=== PATIENT | female | born 1940 | race African-American/Black ===

== ENCOUNTER 2016-10-08 15:09 | Inpatient (IN) | payer MEDICARE ==
[2016-10-08] VITALS (8 sets, daily range): BP systolic 96–123; BP diastolic 53–64
[~2016-10-08] VITALS: Ht 157.5 cm; Wt 98.6 kg
[~2016-10-08 15:09] MED LIST: CIPROFLOXACN500 MG PO; DITROPAN XL5 MG PO; GLUCOVANCE PO; HYDROCHLORO25 MG/TAB PO; LOPRESSOR 550 MG/TAB PO; LOSARTAN POT50 MG PO; PRAVACHOL20 MG PO; PRILOSEC20 MG/CAP PO; TRAMADOL HCL50 MG PO; XALATAN0.005 % OU
--- NOTE | 2016-10-08 15:20 | NUR ---
PATIENT TO ROOM VIA WHEELCHAIR. PHYSICIAN NOTIFIED OF PATIENT STATUS
--- NOTE | 2016-10-08 15:41 | NUR ---
FAMILY AT BEDSIDE
[2016-10-08 15:51] LABS: HEMATOCRIT 35.3 % (37.0-47.0); HEMOGLOBIN 11.7 g/dl (12.0-16.0); IMMATURE GRANULOCYTES 0.2 % (0.0-1.0); MEAN CELL VOLUME 94.1 fL CALC (80.0-100.0); MEAN CORPUSCULAR HGB 31.2 pG CALC (26.0-32.0); MEAN CORPUSCULAR HGB CONC 33.1 g/L CALC (32.0-36.0); NEUT# 2.67 thou/uL (2.00-7.15); RED BLOOD COUNT 3.75 mill/uL (4.20-5.60); RED CELL DISTRI WIDTH 13.5 % (11.5-15.5)
--- NOTE | 2016-10-08 15:59 | NUR ---
CARDIZEM GTT INITIATED ORDERED, WILL MONITOR CLOSELY TELE CONTINUES READING AFIB RATE 108-140 BP CURRENLTY 144/69, FAMILY REMAINS AT BEDSIDE
[2016-10-08 16:12] LABS: ALBUMIN 4.1 g/dL (3.2-5.0); ALKALINE PHOSPHATASE 61 u/l (38-126); ANION GAP 17 (6-22 (CALC)); BILIRUBIN, TOTAL 0.5 mg/dL (0.0-1.4); BUN 16 mg/dL (8-23); BUN/CREATININE RATIO 15 (12-20 (CALC)); CARBON DIOXIDE 22 mmol/l (22-30); CHLORIDE 109 mmol/l (95-108); CREATININE 1.1 mg/dL (0.5-1.0); GFR 48 ML/MIN (>=60 (CALC)); GFR FOR AFR.AMER. 58 ML/MIN (>=60 (CALC)); GLUCOSE 188 mg/dL (82-115); POTASSIUM 4.3 mmol/l (3.5-5.1); SGOT/AST 34 u/l (9-36); SGPT/ALT 31 u/l (11-66); SODIUM 143 mmol/l (137-146); TOTAL PROTEIN 7.3 g/dL (6.3-8.2)
[2016-10-08 16:24] LABS: MYOGLOBIN 28 ng/mL (0 - 62)
--- NOTE | 2016-10-08 16:30 | NUR ---
PT RESTING FAMILY MEMBERS AT BEDSIDE TELE CONTINEUS READFING A FIB RATE MORE [id number] AT 90-100BP 120/58 CALL RAGLAND WITHIN REACH
--- NOTE | 2016-10-08 16:40 | NUR ---
SPOKE WITH PT & FAMILY REGARDING DIAGNOSIS, AND PLAN OF CARE INCLDUING CALLING (PTS ONLINE RETAILER) FOR POSSIBLE ADMISSION, ALL QUESTIONS ANSWERED, CALL [place] WITHIN REACH
--- NOTE | 2016-10-08 18:25 | NUR ---
Admission Note Report Given to: SBAR PRINTED TO FLOOR Transported by: Wheelchair X Stretcher Transported with: X Nurse Transporter X Patent IV O2 X Tailings Worker
--- NOTE | 2016-10-08 18:40 | NUR ---
pt admitted to ICU bed 1 via stretcher from ER, pt alert and oriented, stood off strectcher and trasnferred to standing scale with SBA, weight obtained and then onto BSC with same assist continent of 75 ml clear janet urine, provided own doc care then into bed with min assist, tele reading a fib, BP remains controlled, some exertional dyspnea noted, call hawkins within reach, all monitoring equipment explained prror to application, safety measures introduced, call hawkins within reach.
--- NOTE | 2016-10-08 19:20 | NUR ---
pt awake in bed; multiple family members present at bedside; no distress noted; assessment completed at this time; pt alert and oriented; denies pain; no n/v/diaphoresis noted; denies chest pain; resp even and unlabored; lungs clear/diminished; skin color wnl; ra; hr irreg; weak pedal pulses; 2+ edema noted to ble; afib on monitor; abd soft/distended with bs present; no bm noted per brief writer; admits to voiding without complication; no urine to inspect at this time; #20 in lac patent with ns infusing at 20cc/hr and cardizem gtt at 5mg/hr; no redness or edema noted at site; plan of care explained; daughter Olga requsting to stay with pt; fall precautions initiated; call light within reach; will continue to monitor
--- NOTE | 2016-10-08 19:58 | NUR ---
awake in bed; multiple visitors at bedside; offers no complaints; no distress noted; afib on monitor; iv patent; cardizem gtt cont at 5mg/hr; call light within reach; will continue to monitor
--- NOTE | 2016-10-08 20:45 | NUR ---
Dr Shay called this fiction and nonfiction writer prose; update given; informed bp 92/62 with cardizem gtt infusing at 5mg/hr; orders to be placed per MD
--- NOTE | 2016-10-08 21:59 | NUR ---
asleep; daughter at bedside; cardizem gtt cont at 5mg/hr; afib on monitor; call light within reach; will continue to monitor
[2016-10-09] VITALS (18 sets, daily range): BP systolic 104–169; BP diastolic 58–87
--- NOTE | 2016-10-09 00:03 | NUR ---
pt asleep; easily aroused; offers no complaints; denies pain; iv patent; no redness or edema noted at site; afib 70-80s on monitor; cardizem gtt cont per protocol; daughter Olga remains at bedside; denies need to urinate at this time; call light within reach; will continue to monitor
--- NOTE | 2016-10-09 00:31 | NUR ---
awake; assist to bsc; void small amount of clear dark yellow urine; pericare per self; will continue to monitor
--- NOTE | 2016-10-09 02:04 | NUR ---
resting with eyes closed; afib on monitor; no distress noted; daughter at bedside; call light within reach
--- NOTE | 2016-10-09 04:02 | NUR ---
asleep; no distress noted; resp even and unlabored; afib on monitor; will continue to monitor
--- NOTE | 2016-10-09 06:04 | NUR ---
awake; no distress noted; pt offers no complaints; iv patent; no redness or edema noted at site; cardizem gtt cont at 5mg/hr; daughter remains at bedside; afib on monitor; weight 98.8kg; cont to void dk yellow urine; bed in lowest position; call light within reach
[2016-10-09 06:13] LABS: ANION GAP 13 (6-22 (CALC)); BUN 12 mg/dL (8-23); BUN/CREATININE RATIO 14 (12-20 (CALC)); CALCIUM 8.8 mg/dL (8.4-10.2); CARBON DIOXIDE 24 mmol/l (22-30); CHLORIDE 109 mmol/l (95-108); CREATININE 0.9 mg/dL (0.5-1.0); GFR > 60 ML/MIN (>=60 (CALC)); GFR FOR AFR.AMER. > 60 ML/MIN (>=60 (CALC)); GLUCOSE 93 mg/dL (82-115); POTASSIUM 3.7 mmol/l (3.5-5.1); SODIUM 143 mmol/l (137-146)
[2016-10-09 06:28] LABS: HEMATOCRIT 32.4 % (37.0-47.0); HEMOGLOBIN 10.9 g/dl (12.0-16.0); MEAN CELL VOLUME 94.7 fL CALC (80.0-100.0); MEAN CORPUSCULAR HGB 31.9 pG CALC (26.0-32.0); MEAN CORPUSCULAR HGB CONC 33.6 g/L CALC (32.0-36.0); RED BLOOD COUNT 3.42 mill/uL (4.20-5.60); RED CELL DISTRI WIDTH 13.4 % (11.5-15.5)
--- NOTE | 2016-10-09 06:45 | NUR ---
REPORT RECEIVED FROM NATANAEL SINGH. PT RESTING WITH EYES CLOSED. MEMBER OF FAMILY AT BS IN RECLINER. VSS, NO S/S OF DISTRESS NOTED. SAFETY REVIEWED, CALL LIGHT WITHIN REACH. WILL CONTINUE TO MONITOR.
--- NOTE | 2016-10-09 07:45 | NUR ---
BREAKFAST TRAY PROVIDED, PT AROUSES WITH MINIMAL VERBAL STIMULATION, DISPOSITION IS PLEASANT, DENIES PAIN, NEEDS OR CONCERNS. FAMILY DENIES NEED OR WANT FOR BREAKFAST GUEST TRAY. CALL LIGHT WITHIN REACH. INSTRUCTED PT TO CALL FOR ASSISTANCE, PT VERBALIZES UNDERSTANDING.
--- NOTE | 2016-10-09 08:15 | NUR ---
DO NICHOLS IN TO SEE PT AT THIS TIME.
--- NOTE | 2016-10-09 10:10 | NUR ---
MD AT BS AT THIS TIME. DR. BURGOS CONSULTED.
--- NOTE | 2016-10-09 11:38 | NUR ---
ACCUCHECK IS 139, MAGNESIUM, AND LASIX ADMINISTERED AT THIS TIME. PT GIVEN EDUCATION OF NECESSITY FOR NEW MEDICATION. STATES UNDERSTANDING. LUNCH TRAY PROVIDED. MULTIPLE MEMBERS OF FAMILY AT BS. DENIES PAIN AT THIS TIME. PT REMAINS AFIB ON MONITOR WITH RATE OF 77.
--- NOTE | 2016-10-09 13:00 | NUR ---
FAMILY AT BS, PT VOICES NO CONERNS AT THIS TIME. WILL CONTINUE TO MONITOR.
--- NOTE | 2016-10-09 15:31 | NUR ---
SECOND DOSE OF DIGOXIN GIVEN AT THIS TIME, IV CARDIZEM TITRATED TO OFF. HR IS BETWEEN 75-90. PT BP IS 155/77. NO DISTRESS NOTED, WILL CONTINUE TO MONITOR.
--- NOTE | 2016-10-09 17:00 | NUR ---
PT INDEPENDANTLY UP TO THE BSC, PERFORMS ADL'S WITH MINIMAL ASSISTANCE FROM DAUGHTER. CALL LIGHT WITHIN REACH. WILL CONTINUE TO MONITOR.
--- NOTE | 2016-10-09 19:40 | NUR ---
OOB TO BSC WITH STEADY GAIT, VOIDING CLEAR YELLOW URINE THEN BACK TO BED.
--- NOTE | 2016-10-09 20:00 | NUR ---
PT IN BED WATCHING TV, RESPIRAITONS EVEN AND UNLABORED. B/P 158/74, IRREGULAR HR 90-100. DENIES CHEST PAIN OR DISCOMFORT. IV TO LH HEPLOCKED. ENCOURAGED TO USE CALL LIGHT FOR ASSISTNACE. WILL CONTINUE TO MONITOR.
--- NOTE | 2016-10-09 22:00 | NUR ---
RESTING WITH EYES CLOSED, WEARING OWN C-PAP. HR CONTINUES TO BE IRREGULAR 80-110'S. CALL LIGHT IN REACH, DAUGHTER AT BED SIDE.
[2016-10-10] VITALS (7 sets, daily range): BP systolic 125–166; BP diastolic 63–91
--- NOTE | 2016-10-10 00:29 | NUR ---
PT RESTING WITH EYES CLOSED RESPIRATIONS EVEN AND UNLABORED ON CPAP. HR BETWEEN 70-90'S. CALL LIGHT IN REACH.
--- NOTE | 2016-10-10 03:21 | NUR ---
OOB TO BSC WITH STEADY GAIT, VOIDING CLEAR YELLOW URINE, THEN BACK TO BED. DOES NOT WANT TO WEAR C-PAP AT THIS TIME, O2 SAT 98%. CALL LIGHT IN REACH, PO FLUIDS AT BED SIDE.
--- NOTE | 2016-10-10 05:20 | NUR ---
MORNING BLOOD WORK DRAWN BY FUNDRAISING MANAGER, TOLERATED WELL.
[2016-10-10 06:17] LABS: HEMATOCRIT 34.3 % (37.0-47.0); HEMOGLOBIN 11.4 g/dl (12.0-16.0); IMMATURE GRANULOCYTES 0.2 % (0.0-1.0); MEAN CELL VOLUME 93.7 fL CALC (80.0-100.0); MEAN CORPUSCULAR HGB 31.1 pG CALC (26.0-32.0); MEAN CORPUSCULAR HGB CONC 33.2 g/L CALC (32.0-36.0); NEUT# 1.94 thou/uL (2.00-7.15); RED BLOOD COUNT 3.66 mill/uL (4.20-5.60); RED CELL DISTRI WIDTH 13.1 % (11.5-15.5)
[2016-10-10 06:34] LABS: ANION GAP 12 (6-22 (CALC)); BUN 12 mg/dL (8-23); BUN/CREATININE RATIO 12 (12-20 (CALC)); CALCIUM 8.7 mg/dL (8.4-10.2); CARBON DIOXIDE 26 mmol/l (22-30); CHLORIDE 108 mmol/l (95-108); GFR 54 ML/MIN (>=60 (CALC)); GFR FOR AFR.AMER. > 60 ML/MIN (>=60 (CALC)); GLUCOSE 118 mg/dL (82-115); MAGNESIUM 1.7 mg/dL (1.6-2.3); SODIUM 142 mmol/l (137-146)
--- NOTE | 2016-10-10 06:45 | NUR ---
REPORT RECIEVED FROM VINH PERKINS. PT RESTING WITH MEMBER OF FAMILY AT BS. CALL LIGHT WITHIN REACH. WILL CONTINUE TO MONITOR.
--- NOTE | 2016-10-10 07:30 | NUR ---
PT AWAKE AND TRANSFERS INDEPENDANTLY TO BSC AND BACK TO BED FOR AM CARE AND BREAKFAST.
[2016-10-10] MEDS ORDERED: LASIX20 MG PO (08:45)
--- NOTE | 2016-10-10 09:40 | NUR ---
DR. BURGOS IN TO SEE PT AT THIS TIME. ADJUSTMENTS TO MEDICATIONS MADE, AND IN CHART.
--- NOTE | 2016-10-10 13:25 | NUR ---
PT ARRIVED TO FLOOR @ 1301 VIA WHEELCHAIR ACCOMPANIED BY NATANAEL RÍOS. PT AMBULATES INDEPENDENTLY. STEADY GAIT. PT ORIENTED TO ROOM AND EQUIPMENT. PLAN OF CARE DISCUSSED. CALL LIGHT REVIEWED AND IN REACH. PT STATES UNDERSTANDING. PT'S DAUGHTER AT BEDSIDE.
--- NOTE | 2016-10-10 16:03 | NUR ---
PT SITTING IN CHAIR AT BEDSIDE. DENIES COMPLAINTS. REPORTING OF CONCERNS ENCOURAGED. WILL CONTINUE TO MONITOR.
[2016-10-10 17:16] LABS: URINE BILIRUBIN - DIPSTICK NEGATIVE (NEGATIVE); URINE BLOOD DIPSTICK NEGATIVE (NEGATIVE); URINE CLARITY CLEAR; URINE COLOR YELLOW; URINE GLUCOSE - DIPSTICK NEGATIVE (NEGATIVE); URINE KETONE NEGATIVE (NEGATIVE); URINE LEUK ESTERASE NEGATIVE (Negative); URINE NITRITE - DIPSTICK NEGATIVE (Negative); URINE PROTEIN - DIPSTICK NEGATIVE (NEG-TRACE); URINE SPECIFIC GRAVITY 1.015; URINE UROBILINOGEN - DIPSTICK 0.2 E.U./dL (0.2)
--- NOTE | 2016-10-10 19:12 | NUR ---
BEDSIDE REPORT RECEIVED FROM NATANAEL STEPHENS. PT SITTING UP ON EDGE OF BED. DENIES PAIN AT THIS TIME. RESPIRATIONS EVEN AND UNLABORED. FAMILY AT BEDSIDE. PLAN OF CARE DISCUSSED. PT ENCOURAGED TO VERBALIZE CONCERNS. STATES UNDERSTANDING. SAFETY MEASURES IN PLACE. CALL LIGHT WITHIN REACH.
--- NOTE | 2016-10-11 00:40 | NUR ---
PT ASLEEP AT THIS TIME. NO SIGNS OF DISTRESS NOTED. RESPIRATIONS EVEN AND UNLABORED. IV SITE APPEARS HEALTHY. SAFETY MEASURES REMAIN IN PLACE. CALL LIGHT WITHIN REACH.
--- NOTE | 2016-10-11 04:11 | NUR ---
PT ASLEEP AT THIS TIME. NO SIGNS OF DISTRESS NOTED. RESPIRATIONS EVEN AND UNLABORED ON ROOM AIR. NO CHANGES IN ASSESSMENT NOTED. SAFETY MEASURES IN PLACE. CALL LIGHT WITHIN REACH.
[2016-10-11 05:05] VITALS: BP 130/69
[2016-10-11 06:50] LABS: HEMATOCRIT 33.1 % (37.0-47.0); HEMOGLOBIN 11.1 g/dl (12.0-16.0); MEAN CELL VOLUME 93.8 fL CALC (80.0-100.0); MEAN CORPUSCULAR HGB 31.4 pG CALC (26.0-32.0); MEAN CORPUSCULAR HGB CONC 33.5 g/L CALC (32.0-36.0); NEUT# 2.2 thou/uL (2.00-7.15); RED BLOOD COUNT 3.53 mill/uL (4.20-5.60); RED CELL DISTRI WIDTH 13.3 % (11.5-15.5)
[2016-10-11 07:08] LABS: ANION GAP 13 (6-22 (CALC)); BUN 15 mg/dL (8-23); BUN/CREATININE RATIO 15 (12-20 (CALC)); CARBON DIOXIDE 26 mmol/l (22-30); CHLORIDE 106 mmol/l (95-108); GFR 54 ML/MIN (>=60 (CALC)); GFR FOR AFR.AMER. > 60 ML/MIN (>=60 (CALC)); GLUCOSE 126 mg/dL (82-115); MAGNESIUM 1.8 mg/dL (1.6-2.3); POTASSIUM 3.9 mmol/l (3.5-5.1); SODIUM 140 mmol/l (137-146)
--- NOTE | 2016-10-11 07:32 | NUR ---
BS REPORT RECEIVED, PT.PROPPED UP IN BED AWAKE, DENIES ANY NEEDS AT THIS TIME, CALL LIGHT WIN REACH AND PT.INSTRUCTED TO CALL IF NEEDS ARISE
[2016-10-11 07:49] VITALS: BP 140/83
--- NOTE | 2016-10-11 08:45 | NUR ---
PT IN W/PT.FOR FIRST PT EVALUATION;
--- NOTE | 2016-10-11 10:25 | NUR ---
PT.SITTING UPRIGHT IN RECLINER WATCHING TV, PT.DENIES ANY NEEDS AT THIS TIME, CALL LIGHT IS W/IN REACH; WILL CONTINUE TO F/UP AND CHECK ON PT.
[2016-10-11] MEDS ORDERED: XARELTO10 MG PO (11:57)
[2016-10-11] MEDS ORDERED: LOSARTAN POT50 MG PO (11:58)
[2016-10-11] MEDS ORDERED: CORDARONE/200 MG/TAB PO (11:58)
[2016-10-11 12:00] VITALS: BP 138/79
--- NOTE | 2016-10-11 16:02 | NUR ---
PT.OFF THE FLOOR IN GOOD CONDITION, VIA WC, ACCOMPANIED BY STAFF AND DAUGHTER
== END 2016-10-11 15:58 | disposition home or self-care (01) | DRG 310 ==
LOC: ED 15:09 → ED-I 16:35 → ED 16:57 → ICU 16:58 → MS2 10-10 13:01
PROVIDERS: Emergency Medicine; Nurse Practitioner Family; ADMIT Internal Medicine; ATTEND Internal Medicine
DX: I48.0 Paroxysmal atrial fibrillation (principal); E11.69 Type 2 diabetes mellitus with other specified complication; I11.9 Hypertensive heart disease without heart failure; E78.5 Hyperlipidemia, unspecified; E66.01 Morbid (severe) obesity due to excess calories; G47.33 Obstructive sleep apnea (adult) (pediatric); M19.90 Unspecified osteoarthritis, unspecified site; R07.89 Other chest pain; Z68.39 Body mass index [BMI] 39.0-39.9, adult; Z91.19 Patient's noncompliance with other medical treatment and regimen; Z79.84 Long term (current) use of oral hypoglycemic drugs
CPT/HCPCS: J1160; J1650

== ENCOUNTER → 2018-05-11 | Outpatient (REF) | payer MEDICARE ==
[~2018-05-11] MED LIST changes: +CORDARONE/200 MG/TAB PO; +LASIX20 MG PO; +XARELTO10 MG PO
== END | disposition home or self-care (01) ==
LOC: CT 15:00
PROVIDERS: ATTEND Nurse Practitioner Family
DX: R05 Cough (principal); Z91.81 History of falling; S09.90XA Unspecified injury of head, initial encounter

== ENCOUNTER 2019-02-04 19:47 | Emergency (ER) | payer MEDICARE ==
[~2019-02-04] VITALS: Ht 157.5 cm; Wt 89.0 kg
[2019-02-05] MEDS ORDERED: TORADOL PO (00:37)
[2019-02-05] MEDS ORDERED: ORPHENADRINE C100 M1 PO (00:37)
[2019-02-05 01:10] VITALS: BP 160/59
== END 2019-02-05 01:10 | disposition home or self-care (01) ==
LOC: ED 19:47
DX: M47.812 Spondylosis without myelopathy or radiculopathy, cervical region (principal); E11.9 Type 2 diabetes mellitus without complications; I10 Essential (primary) hypertension
CPT/HCPCS: L0120

== ENCOUNTER 2019-12-29 07:03 | Day surgery (SDC) | payer MEDICARE ==
[~2019-12-29] VITALS: Ht 157.5 cm; Wt 95.3 kg
[~2019-12-29 07:03] MED LIST changes: +ASPIRIN81 MG PO; +ATORVASTATIN CA40 MG PO; +COZAAR100 MG PO; +HYDRALAZINE50 MG PO; +OMEPRAZOLE20 MG PO; +ORPHENADRINE C100 M1 PO; +TORADOL PO
[2019-12-29 10:02] VITALS: BP 194/83
== END 2019-12-29 10:00 | disposition home or self-care (01) ==
LOC: ENDO 07:03 → ORM 09:10 → ENDO 10:00 → ORM 10:15
PROVIDERS: ATTEND Surgery
PROC: 0DBH8ZX Excision of Cecum, Via Natural or Artificial Opening Endoscopic, Diagnostic (ICD-10-PCS; principal; 2019-12-29)
PROC: 0DBL8ZX Excision of Transverse Colon, Via Natural or Artificial Opening Endoscopic, Diagnostic (ICD-10-PCS; 2019-12-29)
PROC: 0DBN8ZX Excision of Sigmoid Colon, Via Natural or Artificial Opening Endoscopic, Diagnostic (ICD-10-PCS; 2019-12-29)
DX: Z12.11 Encounter for screening for malignant neoplasm of colon (principal); D12.0 Benign neoplasm of cecum; D12.4 Benign neoplasm of descending colon; D12.5 Benign neoplasm of sigmoid colon; D17.5 Benign lipomatous neoplasm of intra-abdominal organs; K57.30 Diverticulosis of large intestine without perforation or abscess without bleeding; I10 Essential (primary) hypertension; E11.9 Type 2 diabetes mellitus without complications; Z86.010 Personal history of colon polyps; Z79.01 Long term (current) use of anticoagulants; Z79.84 Long term (current) use of oral hypoglycemic drugs; Z20.828 Contact with and (suspected) exposure to other viral communicable diseases